=== PATIENT | female | born 1990 | race Caucasian/White ===

== ENCOUNTER 2019-03-07 08:07 | Observation (INO) | payer SELFPAY ==
[~2019-03-07] VITALS: Ht 170.2 cm; Wt 133.8 kg
[2019-03-07] MEDS ORDERED: ONDANSETRON HCL 4 MG/2 ML VIAL ONE ×2 (08:12→12:23)
[2019-03-07] MEDS ORDERED: SODIUM CHLORIDE 0.9% 1000ML 1,000 ML IV ONE (08:16)
[2019-03-07 08:40] LABS: BASOPHILS % (AUTO) 0.4 % (0.0-5.0); EOSINOPHILS % (AUTO) 0.2 % (0.0-8.0); HEMATOCRIT 46.6 % (36-48); MEAN CORPUSCULAR HEMOGLOBIN 30.8 pg (27.0-33.0); MEAN CORPUSCULAR HGB CONC 33.7 g/dL (32.0-36.0); MEAN CORPUSCULAR VOLUME 91.5 fL (79-99); NEUTROPHILS % (AUTO) 86.4 % (40.0-77.0); PLATELET COUNT (AUTO) 333 K/uL (130-400); RED BLOOD CELL COUNT(AUTO) 5.09 MIL/uL (4.00-5.50); RED CELL DISTRIBUTION WIDTH 13.7 % (11.0-15.5)
[2019-03-07 08:50] LABS: CREATININE 1.1 mg/dL (0.5-1.5); POTASSIUM 4.2 mmol/L (3.5-5.1)
[2019-03-07 08:54] LABS: ALBUMIN 3.7 g/dL (3.5-5.0); BILIRUBIN,TOTAL 0.8 mg/dL (0.2-1.0); TOTAL PROTEIN, SERUM 8.2 g/dL (6.0-8.3)
[2019-03-07 10:41] LABS: APPEARANCE,URINE Cloudy (CLEAR); BILIRUBIN,URINE Negative (NEGATIVE); COLOR,URINE Yellow (YELLOW); GLUCOSE, URINE (UA) Negative (NEGATIVE); KETONES,URINE >=80 mg/dL (NEGATIVE); LEUKOCYTE ESTERASE ,URINE Moderate (NEGATIVE); NITRATE,URINE Negative (NEGATIVE); OCCULT BLOOD,URINE Negative (NEGATIVE); PROTEIN,URINE Negative (NEGATIVE); UROBILINOGEN,URINE 0.2 mg/dL (0.2-1.0)
[2019-03-07] MEDS ORDERED: DICYCLOMINE HCL 20 MG TAB ONE (10:42)
[2019-03-07 10:48] LABS: HCG,QUAL RESULT NEGATIVE (NEGATIVE)
[2019-03-07 10:49] LABS: AMPHET/METH SCREEN,URINE NEGATIVE (NEGATIVE); BARBITURATE SCREEN, URINE NEGATIVE (NEGATIVE); BENZODIAZEPINES SCREEN,URINE NEGATIVE (NEGATIVE); CANNABINOID SCREEN,URINE POSITIVE (NEGATIVE); COCAINE SCREEN,URINE NEGATIVE (NEGATIVE); OPIATE SCREEN,URINE NEGATIVE (NEGATIVE); PHENCYCLIDINE SCREEN,URINE NEGATIVE (NEGATIVE)
[2019-03-07 10:58] LABS: MUCUS,URINE Rare LPF (None Seen); SQUAMOUS EPITHELIAL CELL,UR Few /HPF (0-2)
[2019-03-07 10:59] LABS: BACTERIA,URINE Few /HPF (None Seen); RBC,URINE 0-1 /HPF (0-1)
[2019-03-07] MEDS ORDERED: LEVOFLOXACIN 500 MG/D5W 100 ML 100 ML ONE (11:07)
[2019-03-07] MEDS ORDERED: HYOSCYAMINE SULFATE 0.125 MG TAB.SUBL SL ONE (11:39)
[2019-03-07] MEDS ORDERED: FAMOTIDINE/PF 20 MG/2 ML VIAL IV ONE (12:24)
[2019-03-07] MEDS ORDERED: ONDANSETRON HCL 4 MG/2 ML VIAL IV PRN (12:30)
[2019-03-07] MEDS ORDERED: DICYCLOMINE HCL 20 MG TAB PO PRN (12:30)
[2019-03-07] MEDS ORDERED: PROMETHAZINE HCL 25 MG/ML 1ML AMPULE IM PRN ×2 (12:30→16:15)
[2019-03-07] MEDS ORDERED: LEVOFLOXACIN 500 MG/D5W 100 ML 100 ML IV SCH (12:30)
[2019-03-07] MEDS ORDERED: KETOROLAC TROMETHAMINE 15MG/ML IV PRN (13:00)
[2019-03-07] MEDS ORDERED: SODIUM CHLORIDE 0.9% 50 ML IV ONE (13:01)
[2019-03-07 15:41] VITALS: BP 147/60
[2019-03-07] MEDS: SODIUM CHLORIDE 0.9% 1000ML 1,000 ML IV SCH ×2 (15:49→20:26)
[2019-03-07 19:25] VITALS: BP 112/76
--- NOTE | 2019-03-07 20:01 | NUR ---
NURSING NOTE Patient was received from ER,admission and orientation done. Receiving NS at 125mL/hr as ordered. Was nauseous, no emesis. Had abdominal pain. Received toradol, bentyl and fluids and took a nap and is much more comfortable now. Family at bedside.
[2019-03-07] MEDS ORDERED: CITA20TA17 PO (20:08)
[2019-03-07] MEDS ORDERED: AMLO5TAB9 PO (20:08)
[2019-03-07] MEDS ORDERED: PROP10TA10 PO (20:08)
--- NOTE | 2019-03-07 20:33 | NUR ---
NURSING NOTE Spoke with Dr. Reno. Informed him that pt wanted to leave hospital by 0400 on 03/08/19. Pt stated she has a flight to catch at 0500. Dr. Reno stated there is not need for GI consult and to do whatever primary doctor wants to do.
[2019-03-07] MEDS ORDERED: FAMOTIDINE/PF 20 MG/2 ML VIAL IV SCH (21:00)
--- NOTE | 2019-03-07 21:25 | NUR ---
NURSING NOTE Spoke with NOLAN Hartman about pt wanting to leave by 0400 03/08/19. Informed her of what GI doctor stated. NOLAN Hartman stated she would have to come and talk with the pt. No orders at this time. Pending for NOLAN Hartman to come and speak with pt.
[2019-03-07 23:05] VITALS: BP 112/68
[2019-03-08] MEDS: SODIUM CHLORIDE 0.9% 1000ML 1,000 ML IV SCH (00:40)
[2019-03-08 03:32] VITALS: BP 110/63
== END 2019-03-08 04:28 | disposition home or self-care (01) ==
LOC: EDH 08:07 → EDHIP 08:09 → 3BH 13:31
PROVIDERS: ADMIT Internal Medicine; ATTEND Internal Medicine
DX: A09 Infectious gastroenteritis and colitis, unspecified (principal); R11.2 Nausea with vomiting, unspecified; R19.7 Diarrhea, unspecified; E66.01 Morbid (severe) obesity due to excess calories; F19.10 Other psychoactive substance abuse, uncomplicated; Z87.19 Personal history of other diseases of the digestive system; Z90.5 Acquired absence of kidney; Z90.81 Acquired absence of spleen; Z90.49 Acquired absence of other specified parts of digestive tract; Z88.6 Allergy status to analgesic agent; Z68.42 Body mass index [BMI] 45.0-49.9, adult
CPT/HCPCS: 36415; 74176; 80053; 80305; 81025; 82150; 82270; 83605; 83630; 83690; 84702; 85025; 87040 ×2; 87088; 87804 ×2; 96361 ×2; 96372; 96374; 96375; 99284; G0378 ×15; J1885; J1956; J2405 ×2; J2550; J3490 ×2; J7030; 81001